=== PATIENT | female | born 1985 | race African-American/Black ===

== ENCOUNTER 2016-09-18 06:26 | Emergency (ER) | payer OTHER ==
[~2016-09-18] VITALS: Ht 162.6 cm; Wt 59.0 kg
[2016-09-18 06:29] VITALS: BP 126/90; PULSE 80; RESP 18; TEMP 97.3; O2SAT 99
[2016-09-18] MEDS ORDERED: NACL 0.9% 1,000 ML IV ONE (06:38)
[2016-09-18 06:43] LABS: BILIRUBIN,URINE 1+ (NEGATIVE); BLOOD, URINE 3+ (NEGATIVE); CLARITY/URINE SL HAZY (CLEAR); COLOR,URINE YELLOW (YELLOW); GLUCOSE,URINE NEGATIVE (NEGATIVE); KETONES,URINE 2+ (NEGATIVE); LEUKOCYTE ESTERASE ,URINE NEGATIVE (NEGATIVE); NITRITE, URINE NEGATIVE (NEGATIVE); PROTEIN URINE 1+ (NEGATIVE); UROBILINOGEN,URINE 0.2 (0.2-1.0)
[2016-09-18] MEDS ORDERED: MAG HYDROX/AL HYDROX/SIMETH 30 ML, BELLADONNA ALKALOIDS/PHENOBARB 10 ML, LIDOCAINE VISC... PO ONE ×3 (06:45)
[2016-09-18] MEDS ORDERED: ONDANSETRON HCL 4 MG/2 ML VIAL IVP ONE (06:45)
[2016-09-18] MEDS ORDERED: KETOROLAC TROMETHAMINE 30 MG VIAL IVP ONE (06:45)
[2016-09-18 06:51] LABS: BACTERIA,URINE FEW /HPF (None Seen); RBC,URINE 0-3 /HPF (0-3)
[2016-09-18 06:52] LABS: MUCUS,URINE None Seen /LPF (None Seen)
[2016-09-18 06:53] LABS: BARBITURATE, URINE NEGATIVE (NEG <=200); BENZODIAZEPINE, URINE NEGATIVE (NEG <=150); CANNABINOID, URINE POSITIVE (NEG <=50); COCAINE, URINE NEGATIVE (NEG <=150); METHAMPHETAMINES SCREEN,URINE NEGATIVE (NEG <=500); OPIATE, URINE NEGATIVE (NEG <=100); PHENCYCLIDINE SCREEN,URINE NEGATIVE (NEG <=25); UR TRICYCLIC ANTIDEPRESSANTS NEGATIVE (NEG <=300); URINE AMPHETAMINE NEGATIVE (NEG <=500); URINE METHADONE NEGATIVE (NEG <=200); URINE OXYCODONE SCREEN NEGATIVE (NEG <=100); URINE PROPOXYPHENE SCREEN NEGATIVE (NEG <=300)
[2016-09-18 06:56] LABS: BASOPHILS % (AUTO) 0.3 % (0.0-2.0); EOSINOPHILS % (AUTO) 0.3 % (0.0-4.0); HEMATOCRIT 42.1 % (36-48); LYMPHOCYTES # (AUTO) 1.9 K/uL (1.0-5.5); LYMPHOCYTES % (AUTO) 13.8 % (20.5-51.5); MEAN CORPUSCULAR HEMOGLOBIN 32 pg (27-31); MEAN CORPUSCULAR HGB CONC 33 % (32-36); MEAN CORPUSCULAR VOLUME 97 fL (79.0-98.0); NEUTROPHILS # (AUTO) 11.2 K/uL (1.8-7.7); NEUTROPHILS % (AUTO) 78.6 % (40.0-70.0); PLATELET COUNT (AUTO) 142 K/uL (130-430); RED BLOOD CELL COUNT(AUTO) 4.35 MIL/uL (4.2-6.2); WHITE BLOOD COUNT (AUTO) 14.1 K/uL (4.8-10.8)
[2016-09-18 07:06] LABS: INR 1.1 (0.8-1.2); PROTHROMBIN TIME 12.4 SECS (9.5-12.5)
[2016-09-18 07:07] LABS: CALCIUM 9.2 mg/dL (8.4-11.0); CREATININE 0.89 mg/dL (0.55-1.30); POTASSIUM 3.5 mmol/L (3.5-5.1)
[2016-09-18 07:12] LABS: ALBUMIN 4.4 g/dL (3.4-4.8); TOTAL BILIRUBIN 0.9 mg/dL (0.0-1.0); TOTAL PROTEIN, SERUM 7.8 g/dL (6.4-8.3)
[2016-09-18 07:50] VITALS: BP 115/85; PULSE 80; RESP 18; TEMP 97.3; O2SAT 99
== END 2016-09-18 07:50 | disposition home or self-care (01) ==
LOC: SED 06:26
DX: R11.2 Nausea with vomiting, unspecified (principal); R19.7 Diarrhea, unspecified
CPT/HCPCS: 36415; 80053; 80307; 81000; 81025; 83690; 85025; 85610; 96361; 96374; 96375; 99284; J1885; J2001; J2405; J7030

== ENCOUNTER 2022-01-30 00:02 | Emergency (ER) | payer OTHER ==
[~2022-01-30] VITALS: Ht 165.1 cm; Wt 63.5 kg
[2022-01-30 00:22] VITALS: BP_SYST 108
--- NOTE | 2022-01-30 00:25 | NUR ---
PATIENT C/O LEFT EAR PAIN X 2 DAYS. TYLENOL NOT HELPING. NO OTHER SYMPTOMS PRESENT
[2022-01-30] MEDS ORDERED: AMOX-520 PO (00:48)
--- NOTE | 2022-01-30 01:20 | NUR ---
DISCHARGE BY MD. NO NURSING INTERVENTION NEEDED, LEFT WITHOUT RECIEVING DISCHARGE PAPERWORK.
== END 2022-01-30 01:20 | disposition home or self-care (01) ==
LOC: SED 00:02
DX: H66.92 Otitis media, unspecified, left ear (principal)
CPT/HCPCS: 99283